=== PATIENT | female | born 1960 | race Caucasian/White ===

== ENCOUNTER → 2019-07-03 | Day surgery (SDC) | payer BC ==
[~2019-07-03] MED LIST: Lactated Ringers 1,000 ML IV SCH; Propofol 200 MG/20 ML SDV IV ONE
--- NOTE | 2019-07-03 12:34 | OR ---
DATE OF OPERATION: 07/03/2019 PREOPERATIVE DIAGNOSIS: ANEMIA WITH HEME-POSITIVE STOOL. POSTOPERATIVE DIAGNOSIS: ANEMIA WITH HEME-POSITIVE STOOL. SURGEON: Scot Carmona MD PROCEDURE: ATTEMPTED EGD AND COLONOSCOPY, ABORTED DUE TO HIGH RISK PATIENT AND EXTREMELY POOR PREP INTOLERABILITY. ANESTHESIA: MAC. COMPLICATIONS: None. SPECIMEN: None. FINDINGS: Unsuccessful endoscopy due to poor patient tolerance. RECOMMENDATIONS: The patient is going back to [facility] for admission in swing bed. She will need endoscopy in a more controlled environment once her medical condition stabilizes. DESCRIPTION OF PROCEDURE: Anesthesia felt she was high risk and she was very hard to get under. She would not tolerate upper endoscopy and colonoscopy. Once we got the scope in the rectal vault, the patient had voluminous amounts of solid stool, we could not see, so we elected to abort. SHIRLEY/CANDE /[id number] CC: Marquis Corbin MD [address] [id number]
== END ==
LOC: CC.SDS 10:35
PROVIDERS: ATTEND Family Medicine
DX: D64.9 Anemia, unspecified (principal); R19.5 Other fecal abnormalities; Z79.899 Other long term (current) drug therapy
CPT/HCPCS: 45330; J2704; J7120; 43235; G0121